=== PATIENT | male | born 1975 | race Asian ===

== ENCOUNTER 2020-06-30 12:49 | Emergency (ER) | payer MEDICARE, OTHER, SELFPAY ==
[~2020-06-30] VITALS: Ht 172.7 cm; Wt 88.7 kg
[~2020-06-30 12:49] MED LIST: ABIL1TAB11 PO; ALBU83IN INH; CLAR10CA3 PO; COLA100C5 PO; DULC5TAB PO; DULO30CA9 PO; FLON0.054; FLON1SPR; INDO-16 PO; LIDO5TD TD; MOME50SP; SENO8.6T5 PO; TIZA2CAP PO; TRAZ-257 PO; ZANA4TAB PO
[2020-06-30] MEDS ORDERED: ROSU40TA4 PO (13:09)
[2020-06-30] MEDS ORDERED: VITA50005 PO (13:09)
[2020-06-30] MEDS ORDERED: FISH1000 PO (13:09)
[2020-06-30] MEDS ORDERED: NS 1,000 ML IV SCH (13:13)
[2020-06-30] MEDS ORDERED: ASPIRIN 81 MG CHEW TABLET PO ONE (13:15)
--- NOTE | 2020-06-30 13:35 | REP ---
INDICATION: CHEST PAIN COMPARISON: 11/10/2015. TECHNIQUE: PA/Lateral FINDINGS: Lungs: Clear, no infiltrate. Heart: Normal in size. Mediastinum: Mediastinal silhouette unremarkable. Pleural angles: Unremarkable.. Bones and soft tissues: Unremarkable. IMPRESSION: No acute pulmonary disease. <Electronically signed by Akin Dawson > 06/30/20 [id number]
[2020-06-30 14:07] LABS: BASO % 0.2 % (0.0-1.0); EOS # 0.1 10^3/uL (0.0-0.5); EOS % 1.6 % (0.0-3.0); HEMATOCRIT 44.4 % (42.0-52.0); LYMPH # 1.6 10^3/uL (1.5-5.0); LYMPH % 25.7 % (24.0-44.0); MEAN CORPUSCULAR HEMOGLOBIN 30.9 pg (27.0-33.0); MEAN CORPUSCULAR HGB CONC 33.8 g/dl (32.0-36.5); MEAN CORPUSCULAR VOLUME 91.4 fl (80.0-96.0); MONO # 0.4 10^3/uL (0.0-0.8); MONO % 6.6 % (0.0-5.0); NEUTROPHILS # 4.1 10^3/uL (1.5-8.5); NEUTROPHILS % 65.7 % (36.0-66.0); PLATELET COUNT, AUTOMATED 236 10^3/uL (150-450); RED BLOOD COUNT 4.86 10^6/uL (4.30-6.10); WHITE BLOOD COUNT 6.2 10^3/uL (4.0-10.0)
[2020-06-30 14:19] LABS: INR 0.85; PROTHROMBIN TIME 11.8 SECONDS (12.5-14.3)
[2020-06-30 14:21] LABS: D-DIMER QUANT 298.86 ng/ml (<500)
[2020-06-30 14:34] LABS: BLOOD UREA NITROGEN 17 MG/DL (7-18); CALCIUM LEVEL 8.9 MG/DL (8.5-10.1); CARBON DIOXIDE LEVEL 29 MEQ/L (21-32); CHLORIDE LEVEL 107 MEQ/L (98-107); CK-MB VALUE MASS 2.3 NG/ML (<3.6); CPK CREATINE PHOSPHOKINASE 140 U/L (39-308); CREATININE FOR GFR 0.87 MG/DL (0.70-1.30); GLOMERULAR FILTRATION RATE > 60.0 (>60); GLUCOSE, FASTING 146 MG/DL (70-100); LIPASE 300 U/L (73-393); MB/CK RELATIVE INDEX 1.64 (< OR =4); POTASSIUM SERUM 3.8 MEQ/L (3.5-5.1); SODIUM LEVEL 141 MEQ/L (136-145); TROPONIN I < 0.02 NG/ML (< 0.10)
[2020-06-30 17:10] VITALS: BP 118/77
--- NOTE | 2020-06-30 22:58 | ECGEPIP ---
[facility] - ED Test Date: 2020-06-30 Pat Name: JOANNE SOSA Department: Room: - Gender: Male Check Cashier: LISA : 1975 Requested By: CHRISTIANO MCCLAIN Order Number: [id number] Reading MD: Rufino Mcmullen Measurements Intervals Morton Rate: 62 P: 34 MA: 158 QRS: 25 QRSD: 112 T: 29 QT: 416 QTc: 425 Interpretive Statements SINUS RHYTHM PRIOR INFERIOR INFARCT MODERATE INTRAVENTRICULAR CONDUCTION DELAY NSTTW ABNORMALITY(S) SIMILAR TO 11/10/15 Electronically Signed on 06-30-2020 22:58:43 EST by Rufino Mcmullen
== END 2020-06-30 17:15 | disposition home or self-care (01) ==
LOC: M ED 12:49
DX: R07.89 Other chest pain (principal); J45.909 Unspecified asthma, uncomplicated; Z79.899 Other long term (current) drug therapy; E73.9 Lactose intolerance, unspecified

== ENCOUNTER → 2022-03-09 | Outpatient (REF) ==
[~2022-03-09] MED LIST changes: +ALBU2.5V10 INH; -ALBU83IN INH; +ERGO500029 PO; +FISH1000 PO; -MOME50SP; +NASO50SP3; +ROSU40TA4 PO
== END ==
LOC: M RAD 12:03
PROVIDERS: ATTEND Physician Assistant Medical
DX: M79.672 Pain in left foot (principal)

== ENCOUNTER → 2023-02-28 | Outpatient (CLI) | payer MEDICARE, OTHER | LOC: M CARPUL 13:27 | PROVIDERS: ATTEND Nurse Practitioner Family | DX: R06.02 Shortness of breath (principal) ==

== ENCOUNTER → 2023-03-14 | Outpatient (CLI) | payer OTHER, MEDICARE | LOC: M RAD 15:31 | PROVIDERS: ATTEND Nurse Practitioner Family | DX: R06.02 Shortness of breath (principal) ==

== ENCOUNTER → 2023-03-16 | Outpatient (CLI) | payer MEDICARE, OTHER ==
[~2023-03-16] MED LIST changes: +METHACHOLINE KIT INH ONE
== END ==
LOC: M CARPUL 03-09 14:56
PROVIDERS: ATTEND Nurse Practitioner Family
DX: R06.02 Shortness of breath (principal)
CPT/HCPCS: 94070; 95070; J7674

== ENCOUNTER 2023-09-14 09:49 | Day surgery (SDC) | payer OTHER ==
[~2023-09-14] VITALS: Ht 172.7 cm; Wt 83.6 kg
[~2023-09-14 09:49] MED LIST changes: +AMLO25TA PO; -METHACHOLINE KIT INH ONE; +MULTTAB86 PO; +OMEG12002 PO; +VITA200012 PO
[2023-09-14] MEDS: NS 1,000 ML IV ONE (10:15)
[2023-09-14] MEDS ORDERED: propofoL 200 MG/20 ML VIAL As Ordered ONE (10:38)
[2023-09-14 12:00] VITALS: BP 129/93; O2SAT 97
== END 2023-09-14 12:04 | disposition home or self-care (01) ==
LOC: M OPP 09:49
PROVIDERS: ATTEND Surgery
DX: Z12.11 Encounter for screening for malignant neoplasm of colon (principal); Z86.010 Personal history of colon polyps; Z79.02 Long term (current) use of antithrombotics/antiplatelets; Z79.51 Long term (current) use of inhaled steroids; Z79.84 Long term (current) use of oral hypoglycemic drugs; Z79.899 Other long term (current) drug therapy; Z91.011 Allergy to milk products